=== PATIENT | male | born 1955 | race Caucasian/White ===

== ENCOUNTER → 2023-12-25 08:19 | Outpatient (REF) | payer MEDICARE, BC, SELFPAY ==
[2023-12-25 14:06] LABS: Blood Urea Nitrogen 14 mg/dl (9-20); Calcium 9.2 mg/dl (8.4-10.2); Carbon Dioxide 23 mmol/L (22-30); Chloride 107 mmol/L (98-107); Glucose 83 mg/dl (70-99); Potassium 4.2 mmol/L (3.5-5.1); Sodium 137 mmol/L (135-145); eGFR > 60.00
[2023-12-25 14:35] LABS: Glycohemoglobin (HgbA1c) 5.8 % (4.0-5.6)
[2023-12-25 23:21] LABS: % Basophils 0.8 % (0-2); % Eosinophils 2.4 % (0-6); % Immature Granulocytes 0.5 % (0-0.5); % Monocytes 6.6 % (1.7-9.3); % Neutrophils 47.7 % (42.2-75.2); Absolute Basophils 0.1 10^3/uL (0-0.2); Absolute Eosinophils 0.2 10^3/uL (0-0.7); Absolute Immature Granulocytes 0.1 10^3/uL (0-0.05); Absolute Lymphocytes 3.8 10^3/uL (1.2-3.4); Absolute Monocytes 0.6 10^3/uL (0.1-0.6); Absolute Neutrophils 4.3 10^3/uL (1.4-6.5); Hematocrit 44.7 % (39.0-52.0); Hemoglobin 15.7 g/dL (13.0-18.0); Mean Corp Hgb Conc. 35.1 g/dL (33.0-37.0); Mean Corpuscular Hgb 32.4 pg (27.0-31.0); Mean Corpuscular Volume 92.4 fL (80.0-94.0); Nucleated Red Blood Cells % 0 % (-); Red Blood Cell Count 4.84 10^6/uL (4.70-6.10); Red Cell Dist. Width 12.6 % (11.5-14.5); White Blood Cell Count 9.1 10^3/uL (4.8-10.8)
[2023-12-26 01:21] LABS: Mean Platelet Volume 11.1 fL (7.4-10.4); Platelet Count 156 10^3/uL (130-400)
== END ==
LOC: REG 08:19
PROVIDERS: ATTENDING PHYSICIAN Family Medicine; REFERRING PHYSICIAN Internal Medicine Cardiovascular Disease
DX: R73.01 Impaired fasting glucose (principal); K21.9 Gastro-esophageal reflux disease without esophagitis; I10 Essential (primary) hypertension
CPT/HCPCS: 36415; 80048; 83036; 85025

== ENCOUNTER → 2024-01-19 12:14 | Outpatient (REF) | payer MEDICARE, BC, SELFPAY | LOC: RAD 12:14 | PROVIDERS: ATTENDING PHYSICIAN Family Medicine | DX: R10.12 Left upper quadrant pain (principal) | CPT/HCPCS: 74177; Q9967 ==

== ENCOUNTER → 2024-03-15 09:44 | Outpatient (REF) | payer MEDICARE, BC, SELFPAY | LOC: RAD 09:44 | PROVIDERS: ATTENDING PHYSICIAN Family Medicine | DX: K22.89 Other specified disease of esophagus (principal); R93.5 Abnormal findings on diagnostic imaging of other abdominal regions, including retroperitoneum | CPT/HCPCS: 74221 ==

== ENCOUNTER → 2024-04-06 16:17 | Outpatient (REF) | payer MEDICARE, BC, SELFPAY ==
[2024-04-06 18:51] LABS: PSA, Total - Diagnostic 2.41 ng/ml (0.0-4.0)
== END ==
LOC: REG 16:17
PROVIDERS: ATTENDING PHYSICIAN Specialist; FAMILY PHYSICIAN Family Medicine
DX: R97.20 Elevated prostate specific antigen [PSA] (principal)
CPT/HCPCS: 36415; 84153

== ENCOUNTER → 2024-05-13 10:52 | Outpatient (REF) | payer MEDICARE, BC, SELFPAY | LOC: DHSLP 10:52 | PROVIDERS: ATTENDING PHYSICIAN Family Medicine; FAMILY PHYSICIAN Internal Medicine Critical Care Medicine | DX: G47.33 Obstructive sleep apnea (adult) (pediatric) (principal) | CPT/HCPCS: 95800 ==

== ENCOUNTER → 2024-07-13 07:10 | Outpatient (REF) | payer MEDICARE, BC, SELFPAY ==
[2024-07-13 11:34] LABS: ALT (SGPT) 23 U/L (0-50); AST (SGOT) 28 U/L (17-59); Albumin 4.5 g/dl (3.5-5.0); Alkaline Phosphatase 69 U/L (38-126); Blood Urea Nitrogen 14 mg/dl (9-20); Calcium 9.4 mg/dl (8.4-10.2); Carbon Dioxide 28 mmol/L (22-30); Chloride 104 mmol/L (98-107); Glucose 83 mg/dl (70-99); HDL Cholesterol 50 mg/dl; LDL Cholesterol, Calculated 109 mg/dl; Potassium 4.8 mmol/L (3.5-5.1); Sodium 143 mmol/L (135-145); Total Cholesterol 174 mg/dl (50-199); Triglyceride 76 mg/dl (10-149); Very Low Density Lipoprotein 15 mg/dl (0-30); eGFR > 60.00
== END ==
LOC: REG 07:10
PROVIDERS: ATTENDING PHYSICIAN Family Medicine
DX: E78.00 Pure hypercholesterolemia, unspecified (principal)
CPT/HCPCS: 36415; 80053; 80061

== ENCOUNTER 2024-09-27 06:26 | Day surgery (SDC) | payer MEDICARE, BC, SELFPAY | END 2024-09-27 11:44 | disposition home or self-care (01) | LOC: GI 06:26 | PROVIDERS: ATTENDING PHYSICIAN Internal Medicine | DX: K22.2 Esophageal obstruction (principal); K44.9 Diaphragmatic hernia without obstruction or gangrene; Z13.810 Encounter for screening for upper gastrointestinal disorder; K21.00 Gastro-esophageal reflux disease with esophagitis, without bleeding | CPT/HCPCS: 43239; 88305; 88342 ==

== ENCOUNTER → 2024-12-19 08:49 | Outpatient (REF) | payer MEDICARE, BC, SELFPAY ==
[2024-12-19 09:49] LABS: % Basophils 0.5 % (0-2); % Eosinophils 1.2 % (0-6); % Immature Granulocytes 0.2 % (0-0.5); % Lymphocytes 46.3 % (20.5-51.1); % Monocytes 6.3 % (1.7-9.3); % Neutrophils 45.5 % (42.2-75.2); Absolute Basophils 0.1 10^3/uL (0-0.2); Absolute Eosinophils 0.1 10^3/uL (0-0.7); Absolute Lymphocytes 4.6 10^3/uL (1.2-3.4); Absolute Monocytes 0.6 10^3/uL (0.1-0.6); Absolute Neutrophils 4.5 10^3/uL (1.4-6.5); Hematocrit 45.8 % (39.0-52.0); Hemoglobin 15.3 g/dL (13.0-18.0); Mean Corp Hgb Conc. 33.4 g/dL (33.0-37.0); Mean Corpuscular Hgb 31.9 pg (27.0-31.0); Mean Corpuscular Volume 95.6 fL (80.0-94.0); Mean Platelet Volume 10.6 fL (7.4-10.4); Nucleated Red Blood Cells % 0 % (-); Platelet Count 148 10^3/uL (130-400); Red Blood Cell Count 4.79 10^6/uL (4.70-6.10); Red Cell Dist. Width 12.8 % (11.5-14.5)
[2024-12-19 10:03] LABS: ALT (SGPT) 16 U/L (0-50); AST (SGOT) 19 U/L (17-59); Albumin 4.1 g/dl (3.5-5.0); Alkaline Phosphatase 62 U/L (38-126); Blood Urea Nitrogen 13 mg/dl (9-20); Calcium 9.7 mg/dl (8.4-10.2); Carbon Dioxide 28 mmol/L (22-30); Chloride 107 mmol/L (98-107); Glucose 103 mg/dl (70-99); HDL Cholesterol 51 mg/dl; LDL Cholesterol, Calculated 112 mg/dl; Potassium 4.6 mmol/L (3.5-5.1); Sodium 143 mmol/L (135-145); Total Bilirubin 1.1 mg/dl (0.2-1.3); Total Cholesterol 178 mg/dl (50-199); Total Protein 6.6 g/dl (6.3-8.2); Triglyceride 76 mg/dl (10-149); Very Low Density Lipoprotein 15 mg/dl (0-30); eGFR > 60.00
[2024-12-19 11:20] LABS: Glycohemoglobin (HgbA1c) 5.6 % (4.0-5.6)
== END ==
LOC: REG 08:49
PROVIDERS: ATTENDING PHYSICIAN Physician Assistant; OTHER PHYSICIAN Student in an Organized Health Care Education/Training Program
DX: Z76.89 Persons encountering health services in other specified circumstances (principal); I10 Essential (primary) hypertension; R73.01 Impaired fasting glucose; E78.00 Pure hypercholesterolemia, unspecified; K21.9 Gastro-esophageal reflux disease without esophagitis; E55.9 Vitamin D deficiency, unspecified
CPT/HCPCS: 36415; 80053; 80061; 82306; 83036; 85025

== ENCOUNTER → 2025-01-25 13:39 | Outpatient (REF) | payer MEDICARE, BC, SELFPAY | LOC: HWRAD 13:39 | PROVIDERS: ATTENDING PHYSICIAN Physician Assistant | DX: E04.2 Nontoxic multinodular goiter (principal) | CPT/HCPCS: 76536 ==

== ENCOUNTER → 2025-02-28 06:42 | Outpatient (REF) | payer MEDICARE, BC, SELFPAY | LOC: RAD 06:42 | PROVIDERS: ATTENDING PHYSICIAN Physician Assistant | DX: R91.1 Solitary pulmonary nodule (principal) | CPT/HCPCS: 71250 ==

== ENCOUNTER → 2025-04-26 08:54 | Outpatient (REF) | payer MEDICARE, BC, SELFPAY ==
[2025-04-26 10:51] LABS: HDL Cholesterol 63 mg/dl; LDL Cholesterol, Calculated 32 mg/dl; Very Low Density Lipoprotein 16 mg/dl (0-30)
[2025-04-26 11:23] LABS: PSA, Total - Screen 2.69 ng/ml (0.0-4.0)
== END ==
LOC: REG 08:54
PROVIDERS: Specialist; ATTENDING PHYSICIAN Physician Assistant; OTHER PHYSICIAN Nurse Practitioner
DX: Z12.5 Encounter for screening for malignant neoplasm of prostate (principal); E78.5 Hyperlipidemia, unspecified; M25.552 Pain in left hip
CPT/HCPCS: 36415; 73502; 80061; G0103

== ENCOUNTER → 2025-05-05 13:51 | Outpatient (REF) | payer MEDICARE, BC, SELFPAY ==
[2025-05-05 19:08] LABS: Urine Character Cloudy (Clear)
[2025-05-05 19:35] LABS: Urine Red Blood Cell 16-20 /HPF (0-2); Urine Squamous Cell 0-2 /LPF (Few)
== END ==
LOC: CLAB 13:51
PROVIDERS: ATTENDING PHYSICIAN Specialist
DX: R31.9 Hematuria, unspecified (principal)
CPT/HCPCS: 81003; 81015

== ENCOUNTER → 2025-05-08 13:41 | Outpatient (REF) | payer MEDICARE, BC, SELFPAY ==
[2025-05-08 15:09] LABS: ALT (SGPT) 17 U/L (0-50); AST (SGOT) 20 U/L (17-59); Albumin 4.7 g/dl (3.5-5.0); Alkaline Phosphatase 67 U/L (38-126); Blood Urea Nitrogen 15 mg/dl (9-20); Calcium 9.8 mg/dl (8.4-10.2); Carbon Dioxide 27 mmol/L (22-30); Chloride 103 mmol/L (98-107); Glucose 98 mg/dl (70-99); Potassium 4.2 mmol/L (3.5-5.1); Sodium 138 mmol/L (135-145); Total Protein 7.3 g/dl (6.3-8.2)
[2025-05-08 15:10] LABS: eGFR > 60.00
== END ==
LOC: REG 13:41
PROVIDERS: ATTENDING PHYSICIAN Specialist
DX: R31.0 Gross hematuria (principal)
CPT/HCPCS: 36415; 80053; 87086

== ENCOUNTER → 2025-05-10 07:49 | Outpatient (REF) | payer MEDICARE, BC, SELFPAY | LOC: RAD 07:49 | PROVIDERS: ATTENDING PHYSICIAN Specialist; FAMILY PHYSICIAN Physician Assistant | DX: R31.0 Gross hematuria (principal) | CPT/HCPCS: 74178; Q9967 ==

== ENCOUNTER 2025-06-07 06:27 | Outpatient (RCR) | payer MEDICARE, BC, SELFPAY | END 2025-06-07 23:59 | disposition home or self-care (01) | LOC: RPT 06:27 | PROVIDERS: ATTENDING PHYSICIAN Physician Assistant | DX: H81.10 Benign paroxysmal vertigo, unspecified ear (principal); Z73.6 Limitation of activities due to disability | CPT/HCPCS: 97112; 97162 ==

== ENCOUNTER → 2025-06-22 07:17 | Outpatient (REF) | payer MEDICARE, BC, SELFPAY | LOC: HWRAD 07:17 | PROVIDERS: ATTENDING PHYSICIAN Physician Assistant | DX: K76.9 Liver disease, unspecified (principal); R93.89 Abnormal findings on diagnostic imaging of other specified body structures | CPT/HCPCS: 76700 ==

== ENCOUNTER 2025-06-27 06:10 | Day surgery (SDC) | payer MEDICARE, BC, SELFPAY ==
[2025-06-21 13:42] VITALS: BMI 30.1
[2025-06-27 06:57] VITALS: BMI 30.1
[2025-06-27 06:58] VITALS: BP 124/81
[2025-06-27] MEDS: NORMOSOL-R/PLASMALYTE-A 1000 IV (07:15)
[2025-06-27 07:56] VITALS: BP 124/81; BP 125/79
[2025-06-27 08:00] VITALS: BP 118/78
[2025-06-27 08:15] VITALS: BP 120/84
[2025-06-27 08:25] VITALS: BP 118/78
[2025-06-27 08:50] VITALS: BP 127/77
== END 2025-06-27 09:05 | disposition home or self-care (01) ==
LOC: SDS 06:10
PROVIDERS: ATTENDING PHYSICIAN Specialist; FAMILY PHYSICIAN Physician Assistant
DX: D41.4 Neoplasm of uncertain behavior of bladder (principal)
CPT/HCPCS: 52234; 88307

== ENCOUNTER → 2025-07-05 13:39 | Outpatient (REF) | payer MEDICARE, BC, SELFPAY | LOC: RAD 13:39 | PROVIDERS: ATTENDING PHYSICIAN Physician Assistant | DX: R42 Dizziness and giddiness (principal); I70.0 Atherosclerosis of aorta; I25.10 Atherosclerotic heart disease of native coronary artery without angina pectoris; I10 Essential (primary) hypertension | CPT/HCPCS: 93880 ==

== ENCOUNTER → 2025-07-06 06:31 | Outpatient (REF) | payer MEDICARE, BC, SELFPAY | LOC: PAVMRI 06:31 | PROVIDERS: ATTENDING PHYSICIAN Physical Medicine & Rehabilitation; FAMILY PHYSICIAN Physician Assistant | DX: M54.16 Radiculopathy, lumbar region (principal) | CPT/HCPCS: 72148 ==

== ENCOUNTER → 2025-07-11 08:27 | Outpatient (REF) | payer MEDICARE, BC, SELFPAY ==
[2025-07-11 09:10] LABS: Urine Character Clear (Clear)
[2025-07-11 09:20] LABS: Urine Squamous Cell 0-2 /LPF (Few)
== END ==
LOC: REG 08:27
PROVIDERS: ATTENDING PHYSICIAN Specialist
DX: N39.0 Urinary tract infection, site not specified (principal)
CPT/HCPCS: 81003; 81015; 87086